=== PATIENT | male | born 1940 | race Caucasian/White ===

== ENCOUNTER 2020-01-29 19:12 | Inpatient (IN) | payer MEDICARE, OTHER ==
[~2020-01-29] VITALS: Ht 170.2 cm; Wt 63.6 kg
[~2020-01-29 19:12] MED LIST: DONE-46 PO; LISI-600 PO; OXCA300T16 PO; QUET50TA22 PO; TEN1T PO
--- NOTE | 2020-01-29 19:15 | NUR ---
PT'S ALISON PANDYA - [phone]
[2020-01-29] MEDS ORDERED: fentaNYL/PF 50MCG/1 ML 2ML syringe IV ONE (19:40)
[2020-01-29 20:02] LABS: BASOPHILS # (AUTO) 0.1 X10'3 (0-0.2); BASOPHILS % (AUTO) 1.2 % (0-1); EOSINOPHILS # (AUTO) 0.1 X10'3 (0-0.9); HEMATOCRIT 33.8 % (42.0-52.0); HEMOGLOBIN 11.4 g/dl (14.0-17.9); LYMPHOCYTES # (AUTO) 0.6 X10'3 (1.1-4.8); LYMPHOCYTES % (AUTO) 9.8 % (21-51); MEAN CORPUSCULAR HEMOGLOBIN 31.2 PG (27.0-31.0); MEAN CORPUSCULAR HGB CONC 33.6 g/dL (33.0-36.5); MEAN CORPUSCULAR VOLUME 92.8 FL (78-98); MEAN PLATELET VOLUME 6.8 FL (7.4-10.4); MONOCYTES # (AUTO) 0.4 X10'3 (0-0.9); MONOCYTES % (AUTO) 6.8 % (2-12); NEUTROPHILS # (AUTO) 5.1 X10'3 (1.8-7.7); NEUTROPHILS % (AUTO) 80.2 % (42-75); PLATELET COUNT 335 X10'3 (140-440); RED BLOOD COUNT 3.65 X10'6 (4.70-6.10); RED CELL DISTRIBUTION WIDTH 15.3 % (11.5-14.5); WHITE BLOOD COUNT 6.4 X10'3 (4.5-11.0)
[2020-01-29 20:15] LABS: ALANINE AMINOTRANSFERASE 34 U/L (12-78); ALBUMIN 3.6 G/DL (3.4-5.0); ALKALINE PHOSPHATASE 100 IU/L (46-116); ANION GAP 12 (8-16); ASPARTATE AMINO TRANSFERASE 22 U/L (10-37); BILIRUBIN,TOTAL 0.4 MG/DL (0.1-1.0); BLOOD UREA NITROGEN 19 MG/DL (7-18); BUN/CREATININE RATIO 25.7 (5.4-32.0); CALCIUM 9.6 MG/DL (8.5-10.1); CHLORIDE 107 MMOL/L (99-107); CREATININE 0.74 MG/DL (0.60-1.10); GLUCOSE 106 MG/DL (70-104); POTASSIUM 3.7 MMOL/L (3.5-5.1); SODIUM 142 MMOL/L (135-145); TOTAL CARBON DIOXIDE 23.2 MMOL/L (24-32); TOTAL PROTEIN 7.1 G/DL (6.4-8.2); eGFR > 90 ML/MIN
[2020-01-29] MEDS ORDERED: morphine 4 MG/ML inj SYRINge IV ONE ×2 (20:55→22:35)
[2020-01-29] MEDS ORDERED: ASPI-1264 PO (21:38)
[2020-01-29] MEDS ORDERED: potassium Cl 40MEQ/1/2NS 520ml 520 ML IV PRN ×2 (21:40)
[2020-01-29] MEDS ORDERED: morphine 2 MG/ML inj. syringe IV PRN (21:40)
[2020-01-29] MEDS ORDERED: magnesium 2GM in 50ml NS 50 ML IV PRN (21:40)
[2020-01-29] MEDS ORDERED: acetaminophen 325mg tablet PO PRN (21:40)
[2020-01-29] MEDS ORDERED: potassium Cl 20 mEq SR tablet PO PRN (21:40)
[2020-01-29] MEDS ORDERED: magnesium 4gm in 100ml NS 100 ML IV PRN (21:40)
[2020-01-29] MEDS ORDERED: magnesium Cl slow-release 64mg tablet PO PRN (21:40)
--- NOTE | 2020-01-29 22:43 | NUR ---
RECEIVED REPORT FROM MACARIO PIERRE IN ER, PATIENT ON HIS WAY TO THE UNIT.
[2020-01-29] MEDS: normal saline 1000ml 1,000 ML IV SCH (23:32)
[2020-01-30] VITALS: BP 133/77
[2020-01-30] MEDS: morphine 2 MG/ML inj. syringe IV PRN ×3 (01:36→20:33)
--- NOTE | 2020-01-30 06:23 | NUR ---
Problems reprioritized. Patient report given, questions answered & plan of care reviewed with ELIAZAR PIERRE. Patient is in constant pain and pain medication has been administered per MD order.
--- NOTE | 2020-01-30 06:25 | NUR ---
Patient in room [facility] 356A. I have received report from IGNACIO DERAS and had the opportunity to ask questions and assume patient care.
[2020-01-30 07:00] VITALS: BP 132/81
[2020-01-30 07:29] LABS: BASOPHILS % (AUTO) 0.4 % (0-1); EOSINOPHILS # (AUTO) 0.1 X10'3 (0-0.9); EOSINOPHILS % (AUTO) 1.3 % (0-6); HEMATOCRIT 31.5 % (42.0-52.0); HEMOGLOBIN 10.7 g/dl (14.0-17.9); LYMPHOCYTES # (AUTO) 0.6 X10'3 (1.1-4.8); LYMPHOCYTES % (AUTO) 8.2 % (21-51); MEAN CORPUSCULAR HEMOGLOBIN 32.2 PG (27.0-31.0); MEAN CORPUSCULAR HGB CONC 33.9 g/dL (33.0-36.5); MEAN CORPUSCULAR VOLUME 95.1 FL (78-98); MEAN PLATELET VOLUME 7.6 FL (7.4-10.4); MONOCYTES # (AUTO) 0.5 X10'3 (0-0.9); MONOCYTES % (AUTO) 7.3 % (2-12); NEUTROPHILS # (AUTO) 5.6 X10'3 (1.8-7.7); NEUTROPHILS % (AUTO) 82.8 % (42-75); PLATELET COUNT 287 X10'3 (140-440); RED BLOOD COUNT 3.31 X10'6 (4.70-6.10); RED CELL DISTRIBUTION WIDTH 15.1 % (11.5-14.5); WHITE BLOOD COUNT 6.8 X10'3 (4.5-11.0)
[2020-01-30 07:50] LABS: ALBUMIN 3.3 G/DL (3.4-5.0); ANION GAP 11 (8-16); BLOOD UREA NITROGEN 18 MG/DL (7-18); CALCIUM 8.8 MG/DL (8.5-10.1); CHLORIDE 108 MMOL/L (99-107); CREATININE 0.62 MG/DL (0.60-1.10); GLUCOSE 101 MG/DL (70-104); POTASSIUM 3.7 MMOL/L (3.5-5.1); SODIUM 144 MMOL/L (135-145); TOTAL CARBON DIOXIDE 25.1 MMOL/L (24-32); eGFR > 90 ML/MIN
[2020-01-30] MEDS: K and/or MAG REPLACEMENT MC SCH ×2 (08:00→19:59)
[2020-01-30] MEDS: docusate sod 100mg capsule PO SCH ×2 (09:05→20:36)
[2020-01-30] MEDS ORDERED: ondansetron/PF 4mg/2ml inj IV PRN (10:45)
[2020-01-30 11:00] VITALS: BP 130/70
[2020-01-30] MEDS: oxcarbazepine 150mg tablet PO SCH ×2 (16:16→20:36)
[2020-01-30] MEDS ORDERED: ringers solution, lacted 1,000 ML IV ONE (18:10)
--- NOTE | 2020-01-30 18:38 | NUR ---
Patient in room [facility] 356. I have received report from Liliane PIERRE and had the opportunity to ask questions and assume patient care.
--- NOTE | 2020-01-30 18:53 | NUR ---
Problems reprioritized. Patient report given, questions answered & plan of care reviewed with IGNACIO BENEDICT.
[2020-01-30 20:00] VITALS: BP 119/71
[2020-01-30] MEDS: quetiapine 100mg tablet PO SCH (20:36)
[2020-01-30] MEDS: donepezil 5mg tablet PO SCH (20:36)
[2020-01-30] MEDS: normal saline 1000ml 1,000 ML IV SCH (20:43)
[2020-01-31] VITALS (20 sets, daily range): BP systolic 92–129; BP diastolic 47–70
[2020-01-31] MEDS: morphine 2 MG/ML inj. syringe IV PRN ×4 (00:29→23:32)
[2020-01-31] MEDS ORDERED: famotidine 20mg tablet PO ONE (06:00)
--- NOTE | 2020-01-31 06:21 | NUR ---
Problems reprioritized. Patient report given, questions answered & plan of care reviewed with Lois PIERRE.
[2020-01-31 06:42] LABS: BASOPHILS % (AUTO) 0.7 % (0-1); EOSINOPHILS # (AUTO) 0.1 X10'3 (0-0.9); EOSINOPHILS % (AUTO) 1.8 % (0-6); HEMATOCRIT 28.2 % (42.0-52.0); HEMOGLOBIN 9.5 g/dl (14.0-17.9); LYMPHOCYTES # (AUTO) 0.6 X10'3 (1.1-4.8); LYMPHOCYTES % (AUTO) 9.8 % (21-51); MEAN CORPUSCULAR HEMOGLOBIN 32.1 PG (27.0-31.0); MEAN CORPUSCULAR HGB CONC 33.8 g/dL (33.0-36.5); MEAN CORPUSCULAR VOLUME 94.8 FL (78-98); MEAN PLATELET VOLUME 7.1 FL (7.4-10.4); MONOCYTES # (AUTO) 0.6 X10'3 (0-0.9); MONOCYTES % (AUTO) 8.8 % (2-12); NEUTROPHILS # (AUTO) 5.1 X10'3 (1.8-7.7); NEUTROPHILS % (AUTO) 78.9 % (42-75); PLATELET COUNT 252 X10'3 (140-440); RED BLOOD COUNT 2.97 X10'6 (4.70-6.10); RED CELL DISTRIBUTION WIDTH 14.7 % (11.5-14.5); WHITE BLOOD COUNT 6.5 X10'3 (4.5-11.0)
[2020-01-31 06:43] LABS: ANION GAP 9 (8-16); BLOOD UREA NITROGEN 15 MG/DL (7-18); BUN/CREATININE RATIO 24.2 (5.4-32.0); CALCIUM 9.1 MG/DL (8.5-10.1); CHLORIDE 109 MMOL/L (99-107); CREATININE 0.62 MG/DL (0.60-1.10); GLUCOSE 110 MG/DL (70-104); MAGNESIUM 2.1 MG/DL (1.5-2.4); POTASSIUM 3.6 MMOL/L (3.5-5.1); SODIUM 143 MMOL/L (135-145); TOTAL CARBON DIOXIDE 25.5 MMOL/L (24-32); eGFR > 90 ML/MIN
--- NOTE | 2020-01-31 06:50 | NUR ---
Patient in room [facility] 356. I have received report from JAK PIERRE and had the opportunity to ask questions and assume patient care.
--- NOTE | 2020-01-31 07:30 | NUR ---
PATIENT IS A & O X4. BLOOD BANK HAS 2 UNITS READY. PT HAD BS CHECK BS+=100 V/S STABLE
[2020-01-31] MEDS ORDERED: albumin (Human) 5% 250ml BOTTLE IV ONE (07:51)
[2020-01-31] MEDS ORDERED: morphine 4 MG/ML inj SYRINge IV PRN (08:00)
[2020-01-31] MEDS ORDERED: morphine 2 MG/ML inj. syringe IV PRN (08:00)
[2020-01-31] MEDS ORDERED: ringers solution, lacted 1,000 ML IV SCH (08:00)
[2020-01-31] MEDS ORDERED: acetaminophen 1,000mg/100ml IV 100 ML IV PRN (08:00)
[2020-01-31] MEDS: K and/or MAG REPLACEMENT MC SCH ×2 (08:00→20:00)
[2020-01-31] MEDS ORDERED: meperidine/PF 25mg/ml syringe IV PRN ×3 (08:00)
[2020-01-31] MEDS ORDERED: hydrALAZINE 20mg/ml inj. IV PRN (08:00)
[2020-01-31] MEDS ORDERED: proCHLORperazine 10 MG/2 ml inj IV PRN (08:00)
[2020-01-31] MEDS ORDERED: labetalol 20mg/4ml (5mg/ml) syringe IV PRN (08:00)
[2020-01-31] MEDS ORDERED: ondansetron/PF 4mg/2ml inj IV PRN (08:00)
--- NOTE | 2020-01-31 08:02 | NUR ---
patient went to surgery at 0750. will admin meds when he returns
[2020-01-31] MEDS ORDERED: cloNIDine hcl/PF 100mcg/ml inj ONE (08:03)
[2020-01-31] MEDS ORDERED: fentaNYL/PF 50MCG/1 ML 2ML syringe ONE (08:04)
[2020-01-31] MEDS ORDERED: midazolam 2 mg/2 ml injection ONE (08:04)
[2020-01-31] MEDS ORDERED: LIDOcaine 1%/PF 5ML 10 MG/ML VIAL ONE (08:33)
[2020-01-31] MEDS ORDERED: ROPIVAcaine 0.5% (5mg/ml) 30ml vial ONE (08:33)
[2020-01-31] MEDS ORDERED: dexamethasone sod phosphate 4mg/ml inj. ONE (08:33)
[2020-01-31] MEDS ORDERED: propofol inj 20 ML IV ONE (08:33)
[2020-01-31] MEDS ORDERED: ceFAZolin 1000mg inj ONE ×2 (08:33)
[2020-01-31] MEDS ORDERED: ePHEDrine 50MG/ML INJ. ONE (08:55)
--- NOTE | 2020-01-31 10:25 | NUR ---
Received from OR via BED, accompanied by Anesthesiologist TR and report given by Anesthesiolgist. PT AWAKE AND ALERT, OXYGENATING WELL ON 10 LPM O2 VIA MASK, NO RESP DISTRESS NOTED. PT DENIES NAUSEA OR PAIN AT THIS TIME, HAD A SAB. NO MOVEMENT OR SENSATION FROM HIPS DOWN. PEDAL PULSES PALP BILAT. LONG ISLAND DSG TO R LATERAL THIGH CDI. FC PATENT, SCDS ON. VSS.
--- NOTE | 2020-01-31 11:40 | NUR ---
Report called to receiving nurse. Transferred via BED Belongings IN PT ROOM. PT DENIES PAIN, REGAINING MOVEMENT AND SENSATION IN BLE. VSS. TOLERATING PO FLUIDS WELL. TRANSFERRED BACK TO SURGICAL FLOOR IN STABLE CONDITION. Special Issues communicated to receiving nurse.
[2020-01-31] MEDS: oxcarbazepine 150mg tablet PO SCH ×3 (12:17→20:34)
[2020-01-31] MEDS: donepezil 5mg tablet PO SCH ×2 (12:18→20:34)
[2020-01-31] MEDS: docusate sod 100mg capsule PO SCH ×2 (12:18→20:34)
[2020-01-31] MEDS: HYDROcodone/acetaminophen 10/325mg tab PO PRN ×2 (12:19→20:35)
[2020-01-31] MEDS: lisinopril 20mg tablet PO SCH (12:19)
[2020-01-31] MEDS: ceFAZolin/D5W- 1GM premix 50 ML IV SCH ×2 (15:47→23:35)
[2020-01-31] MEDS: normal saline 1000ml 1,000 ML IV SCH (15:50)
--- NOTE | 2020-01-31 17:54 | NUR ---
Problems reprioritized. Patient report given, questions answered & plan of care reviewed with MICHEAL PIERRE.
[2020-01-31] MEDS ORDERED: LIDOcaine 2% 10ml TOPICAL JELLY (Urojet) TP ONE (18:15)
--- NOTE | 2020-01-31 18:53 | NUR ---
I have received report from IGNACIO Abreu and had the opportunity to ask questions and assume patient care. Checked patients dressings and they were saturated with blood. Lois and I looked at the incisions and they are intact. Patient was positioned upright t eat dinner and it seems the pressure from being sat up to much caused some bleeding. I changed dressing and bedding. I will continue to monitor the incision throughout the night.
[2020-01-31] MEDS: quetiapine 100mg tablet PO SCH (20:33)
--- NOTE | 2020-01-31 21:00 | NUR ---
Patient had a temp of 101.5 during the first round of vitals. Tylenol 650mg was given at 1917. Temp was re checked at 1999 and it was 102.5. BP was 116/70 and Heart rate was 127. I also checked the patients [place] dressing that is covering his incision. the posterior dressing had a moderate amount of blood on it. At 2039 I re checked the patents temp and it was 100.3. I called Dr hinojosa to let him know about the temp, heart rate, and bleeding. I was told to reinforce the surgical site with 6" Mike wrap. No other orders given. I will continue to monitor patient.
[2020-02-01] VITALS (8 sets, daily range): BP systolic 88–108; BP diastolic 42–57
[2020-02-01] MEDS: normal saline 1000ml 1,000 ML IV SCH ×2 (01:58→16:16)
[2020-02-01] MEDS: HYDROcodone/acetaminophen 10/325mg tab PO PRN (02:29)
[2020-02-01] MEDS: morphine 2 MG/ML inj. syringe IV PRN (05:26)
--- NOTE | 2020-02-01 06:29 | NUR ---
Problems reprioritized. Patient report given, questions answered & plan of care reviewed with IGNACIO De La Torre.
--- NOTE | 2020-02-01 06:30 | NUR ---
Patient in room [facility] 340. I have received report from Vishnu PIERRE and had the opportunity to ask questions and assume patient care.
--- NOTE | 2020-02-01 06:30 | NUR ---
Patient in room [facility] 340. I have received report from Vishnu PIERRE and had the opportunity to ask questions and assume patient care.
[2020-02-01 07:15] LABS: BASOPHILS # (AUTO) 0.1 X10'3 (0-0.2); BASOPHILS % (AUTO) 0.7 % (0-1); EOSINOPHILS % (AUTO) 0.5 % (0-6); LYMPHOCYTES # (AUTO) 0.5 X10'3 (1.1-4.8); LYMPHOCYTES % (AUTO) 6.2 % (21-51); MEAN CORPUSCULAR HEMOGLOBIN 31.4 PG (27.0-31.0); MEAN CORPUSCULAR HGB CONC 33.5 g/dL (33.0-36.5); MEAN CORPUSCULAR VOLUME 93.9 FL (78-98); MEAN PLATELET VOLUME 7.7 FL (7.4-10.4); MONOCYTES # (AUTO) 0.7 X10'3 (0-0.9); MONOCYTES % (AUTO) 8.7 % (2-12); NEUTROPHILS # (AUTO) 6.7 X10'3 (1.8-7.7); NEUTROPHILS % (AUTO) 83.9 % (42-75); PLATELET COUNT 183 X10'3 (140-440); RED BLOOD COUNT 2.15 X10'6 (4.70-6.10); RED CELL DISTRIBUTION WIDTH 14.7 % (11.5-14.5)
[2020-02-01 07:26] LABS: ALBUMIN 2.3 G/DL (3.4-5.0); ANION GAP 6 (8-16); BLOOD UREA NITROGEN 13 MG/DL (7-18); BUN/CREATININE RATIO 16.5 (5.4-32.0); CALCIUM 7.9 MG/DL (8.5-10.1); CHLORIDE 108 MMOL/L (99-107); CREATININE 0.79 MG/DL (0.60-1.10); GLUCOSE 123 MG/DL (70-104); MAGNESIUM 1.8 MG/DL (1.5-2.4); POTASSIUM 3.3 MMOL/L (3.5-5.1); SODIUM 141 MMOL/L (135-145); TOTAL CARBON DIOXIDE 26.6 MMOL/L (24-32); eGFR > 90 ML/MIN
[2020-02-01 07:35] LABS: HEMATOCRIT 20.2 % (42.0-52.0); HEMOGLOBIN 6.8 g/dl (14.0-17.9)
--- NOTE | 2020-02-01 07:40 | NUR ---
PAGER ID: [phone] MESSAGE: Wil Surg [id number] RE: Colin Mckay 356a Patient has critical Hb of 6.8 and Hct of 20.2.
[2020-02-01] MEDS: K and/or MAG REPLACEMENT MC SCH ×2 (08:00→20:00)
[2020-02-01] MEDS: lisinopril 20mg tablet PO SCH (08:00)
[2020-02-01] MEDS: donepezil 5mg tablet PO SCH ×2 (08:35→20:20)
[2020-02-01] MEDS: docusate sod 100mg capsule PO SCH ×2 (08:35→20:19)
[2020-02-01] MEDS: oxcarbazepine 150mg tablet PO SCH ×3 (08:38→20:20)
[2020-02-01] MEDS: ceFAZolin/D5W- 1GM premix 50 ML IV SCH ×2 (08:38→16:30)
[2020-02-01] MEDS: potassium Cl 20 mEq SR tablet PO PRN ×2 (13:59→20:23)
[2020-02-01 14:19] LABS: HEMATOCRIT 26.2 % (42.0-52.0); HEMOGLOBIN 8.8 g/dl (14.0-17.9); MEAN CORPUSCULAR HEMOGLOBIN 31.6 PG (27.0-31.0); MEAN CORPUSCULAR HGB CONC 33.7 g/dL (33.0-36.5); MEAN PLATELET VOLUME 8.1 FL (7.4-10.4); PLATELET COUNT 197 X10'3 (140-440); RED BLOOD COUNT 2.78 X10'6 (4.70-6.10); RED CELL DISTRIBUTION WIDTH 14.8 % (11.5-14.5); WHITE BLOOD COUNT 12.1 X10'3 (4.5-11.0)
--- NOTE | 2020-02-01 18:22 | NUR ---
Problems reprioritized. Patient report given, questions answered & plan of care reviewed with Vishnu PIERRE.
--- NOTE | 2020-02-01 18:35 | NUR ---
I have received report from IGNACIO De La Torre and had the opportunity to ask questions and assume patient care.
[2020-02-01] MEDS: quetiapine 100mg tablet PO SCH (20:19)
[2020-02-02] VITALS (9 sets, daily range): BP systolic 102–124; BP diastolic 47–54
[2020-02-02] MEDS ORDERED: magnesium Cl slow-release 64mg tablet PO PRN (00:20)
[2020-02-02] MEDS ORDERED: potassium Cl 20 mEq SR tablet PO PRN (00:20)
[2020-02-02] MEDS ORDERED: potassium Cl 40MEQ/1/2NS 520ml 520 ML IV PRN (00:20)
[2020-02-02] MEDS ORDERED: magnesium 4gm in 100ml NS 100 ML IV PRN (00:20)
[2020-02-02] MEDS: normal saline 1000ml 1,000 ML IV SCH ×2 (00:25→20:41)
[2020-02-02] MEDS: ceFAZolin/D5W- 1GM premix 50 ML IV SCH ×3 (00:27→16:19)
[2020-02-02] MEDS: HYDROcodone/acetaminophen 10/325mg tab PO PRN ×2 (05:02→20:43)
--- NOTE | 2020-02-02 06:27 | NUR ---
Problems reprioritized. Patient report given, questions answered & plan of care reviewed with IGNACIO Ramirez.
[2020-02-02 06:28] LABS: BASOPHILS % (AUTO) 0.4 % (0-1); EOSINOPHILS # (AUTO) 0.1 X10'3 (0-0.9); EOSINOPHILS % (AUTO) 1.8 % (0-6); LYMPHOCYTES # (AUTO) 0.5 X10'3 (1.1-4.8); LYMPHOCYTES % (AUTO) 5.4 % (21-51); MEAN CORPUSCULAR HEMOGLOBIN 31.2 PG (27.0-31.0); MEAN CORPUSCULAR HGB CONC 33.6 g/dL (33.0-36.5); MEAN CORPUSCULAR VOLUME 92.9 FL (78-98); MEAN PLATELET VOLUME 7.8 FL (7.4-10.4); MONOCYTES # (AUTO) 0.8 X10'3 (0-0.9); MONOCYTES % (AUTO) 9.1 % (2-12); NEUTROPHILS # (AUTO) 7.1 X10'3 (1.8-7.7); NEUTROPHILS % (AUTO) 83.3 % (42-75); PLATELET COUNT 178 X10'3 (140-440); RED BLOOD COUNT 2.25 X10'6 (4.70-6.10); RED CELL DISTRIBUTION WIDTH 14.6 % (11.5-14.5); WHITE BLOOD COUNT 8.5 X10'3 (4.5-11.0)
--- NOTE | 2020-02-02 06:30 | NUR ---
Patient in room [facility] 356. I have received report from Vishnu PIERRE and had the opportunity to ask questions and assume patient care.
[2020-02-02 06:39] LABS: ANION GAP 8 (8-16); BLOOD UREA NITROGEN 10 MG/DL (7-18); BUN/CREATININE RATIO 16.7 (5.4-32.0); CALCIUM 8.1 MG/DL (8.5-10.1); CHLORIDE 105 MMOL/L (99-107); GLUCOSE 97 MG/DL (70-104); MAGNESIUM 1.8 MG/DL (1.5-2.4); POTASSIUM 3.8 MMOL/L (3.5-5.1); SODIUM 139 MMOL/L (135-145); TOTAL CARBON DIOXIDE 25.9 MMOL/L (24-32); eGFR > 90 ML/MIN
[2020-02-02 06:40] LABS: HEMATOCRIT 20.9 % (42.0-52.0)
--- NOTE | 2020-02-02 06:43 | NUR ---
Paged Dr. Garcia re: critical lab h/h 7.0/20.9 today asking if he wants the standby 1 unit PRBC transfused today. Awaiting for call back
--- NOTE | 2020-02-02 06:56 | NUR ---
Received telephone order from Dr. Garcia to transfuse the 1 unit PRBC that was on standby in the blood bank, blood bank notified about this. Addendum: 02/02/20 at 0750 by Ashley Guzman RN Order to transfuse 1 unit of PRBC was written under miscellaneous nursing order as the blood bank instructed me not to order another unit to the blood bank because we will use the standby unit. Upon ordering the PRBC, the computer asking me for number of unit or I won't be able to proceed. I discussed this with the blood bank staff who instructed me to come and get the unit once Im ready.
[2020-02-02] MEDS: donepezil 5mg tablet PO SCH ×2 (07:41→20:32)
[2020-02-02] MEDS: docusate sod 100mg capsule PO SCH ×2 (07:41→20:32)
[2020-02-02] MEDS: oxcarbazepine 150mg tablet PO SCH ×3 (07:41→20:32)
--- NOTE | 2020-02-02 07:46 | NUR ---
Discussed with patient the need for another blood transfusion today as his hgb dropped to 7.0 today. Explained to patient that we are going to monitor his vital signs closely and monitor for any signs of reaction. Patient agreed with the plan of care.
[2020-02-02] MEDS: K and/or MAG REPLACEMENT MC SCH ×4 (08:00→20:00)
--- NOTE | 2020-02-02 09:15 | NUR ---
1 unit of PRBC started, first 15 minutes of transfusion completed, vital signs were within normal and no transfusion reaction noted. Will continue to monitor.
--- NOTE | 2020-02-02 12:02 | NUR ---
Patient just finished 1 unit of PRBC transfusion, no reaction noted.
[2020-02-02 14:32] LABS: HEMATOCRIT 26.8 % (42.0-52.0); MEAN CORPUSCULAR HEMOGLOBIN 31.2 PG (27.0-31.0); MEAN CORPUSCULAR HGB CONC 33.7 g/dL (33.0-36.5); MEAN CORPUSCULAR VOLUME 92.6 FL (78-98); MEAN PLATELET VOLUME 7.9 FL (7.4-10.4); PLATELET COUNT 187 X10'3 (140-440); RED CELL DISTRIBUTION WIDTH 14.5 % (11.5-14.5); WHITE BLOOD COUNT 9.1 X10'3 (4.5-11.0)
--- NOTE | 2020-02-02 18:15 | NUR ---
Problems reprioritized. Patient report given, questions answered & plan of care reviewed with Cydney PIERRE.
[2020-02-02] MEDS: quetiapine 100mg tablet PO SCH (20:32)
[2020-02-03] VITALS: BP 112/50
[2020-02-03] MEDS: HYDROcodone/acetaminophen 10/325mg tab PO PRN ×3 (05:57→20:25)
[2020-02-03 06:00] VITALS: BP 102/55
[2020-02-03 06:13] LABS: ANION GAP 7 (8-16); BLOOD UREA NITROGEN 9 MG/DL (7-18); BUN/CREATININE RATIO 12.7 (5.4-32.0); CALCIUM 8.3 MG/DL (8.5-10.1); CHLORIDE 106 MMOL/L (99-107); CREATININE 0.71 MG/DL (0.60-1.10); GLUCOSE 97 MG/DL (70-104); POTASSIUM 3.6 MMOL/L (3.5-5.1); SODIUM 140 MMOL/L (135-145); TOTAL CARBON DIOXIDE 27.5 MMOL/L (24-32); eGFR > 90 ML/MIN
[2020-02-03 06:20] LABS: BASOPHILS % (AUTO) 0.4 % (0-1); EOSINOPHILS # (AUTO) 0.4 X10'3 (0-0.9); HEMATOCRIT 26.4 % (42.0-52.0); HEMOGLOBIN 8.9 g/dl (14.0-17.9); LYMPHOCYTES # (AUTO) 0.5 X10'3 (1.1-4.8); LYMPHOCYTES % (AUTO) 6.9 % (21-51); MEAN CORPUSCULAR HEMOGLOBIN 31.2 PG (27.0-31.0); MEAN CORPUSCULAR HGB CONC 33.6 g/dL (33.0-36.5); MEAN CORPUSCULAR VOLUME 92.9 FL (78-98); MEAN PLATELET VOLUME 8.3 FL (7.4-10.4); MONOCYTES # (AUTO) 0.7 X10'3 (0-0.9); MONOCYTES % (AUTO) 9.1 % (2-12); NEUTROPHILS % (AUTO) 78.6 % (42-75); PLATELET COUNT 189 X10'3 (140-440); RED BLOOD COUNT 2.84 X10'6 (4.70-6.10); RED CELL DISTRIBUTION WIDTH 14.5 % (11.5-14.5); WHITE BLOOD COUNT 7.6 X10'3 (4.5-11.0)
[2020-02-03] MEDS: K and/or MAG REPLACEMENT MC SCH ×4 (07:23→20:00)
[2020-02-03] MEDS: oxcarbazepine 150mg tablet PO SCH ×3 (08:39→19:32)
[2020-02-03] MEDS: donepezil 5mg tablet PO SCH ×2 (08:39→19:31)
[2020-02-03] MEDS: docusate sod 100mg capsule PO SCH ×3 (08:39→19:34)
--- NOTE | 2020-02-03 13:43 | NUR ---
Initial: Pt admit DX R femur fx now s/p repair, ADHD, dementia, and hypotension. PO 75-100% avg recent heart healthy meals w/ 75% avg overall meeting needs. LBM 01/28 receiving routine colace. Will continue to monitor for additional protein and bowel care needs post-op. Rec: 1. continue heart healthy diet 2. routine bowel care; consider opioid antagonist if MD agreeable since receiving norco and morphine 3. weekly wts Addendum: 02/03/20 at [address] Amended: Links added.
[2020-02-03 14:00] VITALS: BP 102/51
[2020-02-03] MEDS: normal saline 1000ml 1,000 ML IV SCH (16:37)
--- NOTE | 2020-02-03 17:00 | NUR ---
PAGER ID: [phone] MESSAGE: [id number] Colin Mckay Can I add Colace and MOM? NO BM since 01/28 Loreta 58
[2020-02-03] MEDS ORDERED: magnesium hydroxide 30ml (MOM) UD suspension PO ONE (17:05)
--- NOTE | 2020-02-03 18:26 | NUR ---
Problems reprioritized. Patient report given, questions answered & plan of care reviewed with Tamar PIERRE.
--- NOTE | 2020-02-03 18:30 | NUR ---
Patient in room [facility] 356. I have received report from IGNACIO RICARDO and had the opportunity to ask questions and assume patient care.
[2020-02-03] MEDS: quetiapine 100mg tablet PO SCH (19:32)
[2020-02-03 20:00] VITALS: BP 108/56
[2020-02-04] VITALS: BP 100/59
[2020-02-04] MEDS: HYDROcodone/acetaminophen 10/325mg tab PO PRN (05:27)
[2020-02-04] MEDS: normal saline 1000ml 1,000 ML IV SCH ×3 (05:47→19:34)
--- NOTE | 2020-02-04 06:00 | NUR ---
Patient in room [facility] 356. I have received report from Tamar PIERRE and had the opportunity to ask questions and assume patient care.
[2020-02-04 06:10] LABS: MAGNESIUM 2.1 MG/DL (1.5-2.4); POTASSIUM 3.9 MMOL/L (3.5-5.1)
--- NOTE | 2020-02-04 06:13 | NUR ---
Problems reprioritized. Patient report given, questions answered & plan of care reviewed with IGNACIO MARINA.
[2020-02-04 07:00] VITALS: BP 102/54
[2020-02-04] MEDS: docusate sod 100mg capsule PO SCH ×4 (08:00→19:37)
[2020-02-04] MEDS: K and/or MAG REPLACEMENT MC SCH ×4 (08:00→19:36)
[2020-02-04] MEDS: oxcarbazepine 150mg tablet PO SCH ×3 (08:21→19:33)
[2020-02-04] MEDS: donepezil 5mg tablet PO SCH ×2 (08:21→19:33)
[2020-02-04] MEDS ORDERED: magnesium hydroxide 30ml (MOM) UD suspension PO PRN (08:25)
[2020-02-04 10:00] VITALS: BP 106/56
--- NOTE | 2020-02-04 18:04 | NUR ---
Problems reprioritized. Patient report given, questions answered & plan of care reviewed with Rafael PIERRE.
[2020-02-04 19:00] VITALS: BP 111/56
[2020-02-04] MEDS: quetiapine 100mg tablet PO SCH (19:33)
[2020-02-05] VITALS: BP 130/61
[2020-02-05] MEDS: HYDROcodone/acetaminophen 10/325mg tab PO PRN ×3 (04:41→19:22)
[2020-02-05 06:07] LABS: BASOPHILS % (AUTO) 0.8 % (0-1); EOSINOPHILS # (AUTO) 0.4 X10'3 (0-0.9); EOSINOPHILS % (AUTO) 7.5 % (0-6); HEMATOCRIT 28.4 % (42.0-52.0); HEMOGLOBIN 9.5 g/dl (14.0-17.9); LYMPHOCYTES # (AUTO) 0.4 X10'3 (1.1-4.8); LYMPHOCYTES % (AUTO) 8.6 % (21-51); MEAN CORPUSCULAR HGB CONC 33.4 g/dL (33.0-36.5); MEAN CORPUSCULAR VOLUME 92.8 FL (78-98); MEAN PLATELET VOLUME 7.4 FL (7.4-10.4); MONOCYTES # (AUTO) 0.6 X10'3 (0-0.9); MONOCYTES % (AUTO) 12.3 % (2-12); NEUTROPHILS # (AUTO) 3.5 X10'3 (1.8-7.7); NEUTROPHILS % (AUTO) 70.8 % (42-75); PLATELET COUNT 267 X10'3 (140-440); RED BLOOD COUNT 3.06 X10'6 (4.70-6.10); RED CELL DISTRIBUTION WIDTH 14.2 % (11.5-14.5)
[2020-02-05 06:28] LABS: ALANINE AMINOTRANSFERASE 31 U/L (12-78); ALBUMIN 2.1 G/DL (3.4-5.0); ALBUMIN/GLOBULIN RATIO 0.5 (1.1-1.5); ANION GAP 7 (8-16); ASPARTATE AMINO TRANSFERASE 35 U/L (10-37); BILIRUBIN,TOTAL 0.5 MG/DL (0.1-1.0); BLOOD UREA NITROGEN 10 MG/DL (7-18); BUN/CREATININE RATIO 15.6 (5.4-32.0); CALCIUM 8.6 MG/DL (8.5-10.1); CHLORIDE 104 MMOL/L (99-107); CREATININE 0.64 MG/DL (0.60-1.10); GLUCOSE 97 MG/DL (70-104); MAGNESIUM 2.2 MG/DL (1.5-2.4); POTASSIUM 3.7 MMOL/L (3.5-5.1); SODIUM 139 MMOL/L (135-145); TOTAL CARBON DIOXIDE 27.7 MMOL/L (24-32); eGFR > 90 ML/MIN
--- NOTE | 2020-02-05 06:41 | NUR ---
reported to days noted pt anticipates discharge to rehab when one available. norco given for pain
[2020-02-05 06:52] LABS: ALKALINE PHOSPHATASE 89 IU/L (46-116)
[2020-02-05 07:09] VITALS: BP 129/72
[2020-02-05] MEDS: K and/or MAG REPLACEMENT MC SCH ×4 (08:00→19:22)
[2020-02-05] MEDS: docusate sod 100mg capsule PO SCH ×4 (08:00→19:22)
[2020-02-05] MEDS: donepezil 5mg tablet PO SCH ×2 (09:27→19:21)
[2020-02-05] MEDS: oxcarbazepine 150mg tablet PO SCH ×3 (09:27→20:39)
[2020-02-05 11:00] VITALS: BP 114/59
[2020-02-05 18:00] VITALS: BP 113/76
--- NOTE | 2020-02-05 18:35 | NUR ---
Patient in room [facility] 358. I have received report from Adalgisa PIERRE and had the opportunity to ask questions and assume patient care.
[2020-02-05] MEDS: quetiapine 100mg tablet PO SCH (20:39)
[2020-02-05] MEDS: normal saline 1000ml 1,000 ML IV SCH (23:09)
[2020-02-06] VITALS: BP 143/64
--- NOTE | 2020-02-06 06:37 | NUR ---
Problems reprioritized. Patient report given, questions answered & plan of care reviewed with Santa PIERRE.
[2020-02-06 06:51] LABS: BASOPHILS % (AUTO) 0.3 % (0-1); EOSINOPHILS # (AUTO) 0.5 X10'3 (0-0.9); EOSINOPHILS % (AUTO) 9.1 % (0-6); HEMATOCRIT 28.1 % (42.0-52.0); HEMOGLOBIN 9.5 g/dl (14.0-17.9); LYMPHOCYTES # (AUTO) 0.6 X10'3 (1.1-4.8); LYMPHOCYTES % (AUTO) 10.9 % (21-51); MEAN CORPUSCULAR HEMOGLOBIN 31.8 PG (27.0-31.0); MEAN CORPUSCULAR HGB CONC 33.9 g/dL (33.0-36.5); MEAN CORPUSCULAR VOLUME 93.7 FL (78-98); MEAN PLATELET VOLUME 7.6 FL (7.4-10.4); MONOCYTES # (AUTO) 0.5 X10'3 (0-0.9); MONOCYTES % (AUTO) 9.1 % (2-12); NEUTROPHILS # (AUTO) 3.7 X10'3 (1.8-7.7); NEUTROPHILS % (AUTO) 70.6 % (42-75); PLATELET COUNT 317 X10'3 (140-440); RED CELL DISTRIBUTION WIDTH 14.5 % (11.5-14.5); WHITE BLOOD COUNT 5.3 X10'3 (4.5-11.0)
--- NOTE | 2020-02-06 06:55 | NUR ---
Patient in room [facility] 358B. I have received report from IGNACIO PHELAN and had the opportunity to ask questions and assume patient care.
[2020-02-06 07:00] VITALS: BP 129/62
[2020-02-06 07:05] LABS: ALANINE AMINOTRANSFERASE 31 U/L (12-78); ALBUMIN 2.2 G/DL (3.4-5.0); ALBUMIN/GLOBULIN RATIO 0.5 (1.1-1.5); ALKALINE PHOSPHATASE 97 IU/L (46-116); ANION GAP 5 (8-16); ASPARTATE AMINO TRANSFERASE 30 U/L (10-37); BILIRUBIN,TOTAL 0.5 MG/DL (0.1-1.0); BLOOD UREA NITROGEN 12 MG/DL (7-18); BUN/CREATININE RATIO 23.1 (5.4-32.0); CALCIUM 8.6 MG/DL (8.5-10.1); CHLORIDE 103 MMOL/L (99-107); CREATININE 0.52 MG/DL (0.60-1.10); GLUCOSE 91 MG/DL (70-104); POTASSIUM 4.1 MMOL/L (3.5-5.1); SODIUM 138 MMOL/L (135-145); TOTAL CARBON DIOXIDE 29.6 MMOL/L (24-32); TOTAL PROTEIN 6.4 G/DL (6.4-8.2); eGFR > 90 ML/MIN
[2020-02-06] MEDS: K and/or MAG REPLACEMENT MC SCH ×4 (07:38→19:46)
[2020-02-06] MEDS: docusate sod 100mg capsule PO SCH ×4 (07:39→19:52)
[2020-02-06] MEDS: donepezil 5mg tablet PO SCH ×2 (09:19→19:49)
[2020-02-06] MEDS: oxcarbazepine 150mg tablet PO SCH ×3 (09:19→19:50)
[2020-02-06] MEDS: HYDROcodone/acetaminophen 10/325mg tab PO PRN ×2 (09:20→19:50)
[2020-02-06] MEDS: normal saline 1000ml 1,000 ML IV SCH ×2 (10:40→23:00)
--- NOTE | 2020-02-06 18:23 | NUR ---
Problems reprioritized. Patient report given, questions answered & plan of care reviewed with IGNACIO Garcia.
[2020-02-06] MEDS: quetiapine 100mg tablet PO SCH (19:50)
[2020-02-06 20:00] VITALS: BP 127/65
[2020-02-07] VITALS: BP 138/72
--- NOTE | 2020-02-07 06:34 | NUR ---
Problems reprioritized. Patient report given, questions answered & plan of care reviewed with IGNACIO Wheatley.
--- NOTE | 2020-02-07 06:47 | NUR ---
Patient in room [facility] 358. I have received report from IGNACIO Garcia and had the opportunity to ask questions and assume patient care.
[2020-02-07 07:00] VITALS: BP 113/60
[2020-02-07 07:03] LABS: BASOPHILS # (AUTO) 0.1 X10'3 (0-0.2); EOSINOPHILS # (AUTO) 0.4 X10'3 (0-0.9); EOSINOPHILS % (AUTO) 7.6 % (0-6); HEMOGLOBIN 8.9 g/dl (14.0-17.9); LYMPHOCYTES # (AUTO) 0.5 X10'3 (1.1-4.8); MEAN CORPUSCULAR HEMOGLOBIN 31.9 PG (27.0-31.0); MEAN CORPUSCULAR HGB CONC 34.3 g/dL (33.0-36.5); MEAN CORPUSCULAR VOLUME 92.9 FL (78-98); MONOCYTES # (AUTO) 0.5 X10'3 (0-0.9); MONOCYTES % (AUTO) 9.2 % (2-12); NEUTROPHILS % (AUTO) 73.2 % (42-75); PLATELET COUNT 352 X10'3 (140-440); RED CELL DISTRIBUTION WIDTH 14.4 % (11.5-14.5); WHITE BLOOD COUNT 5.4 X10'3 (4.5-11.0)
[2020-02-07 07:15] LABS: ALANINE AMINOTRANSFERASE 30 U/L (12-78); ALBUMIN 2.2 G/DL (3.4-5.0); ALBUMIN/GLOBULIN RATIO 0.6 (1.1-1.5); ALKALINE PHOSPHATASE 98 IU/L (46-116); ANION GAP 6 (8-16); ASPARTATE AMINO TRANSFERASE 27 U/L (10-37); BILIRUBIN,TOTAL 0.4 MG/DL (0.1-1.0); BLOOD UREA NITROGEN 11 MG/DL (7-18); BUN/CREATININE RATIO 19.3 (5.4-32.0); CALCIUM 8.7 MG/DL (8.5-10.1); CHLORIDE 105 MMOL/L (99-107); CREATININE 0.57 MG/DL (0.60-1.10); GLUCOSE 95 MG/DL (70-104); POTASSIUM 3.9 MMOL/L (3.5-5.1); SODIUM 140 MMOL/L (135-145); TOTAL CARBON DIOXIDE 29.1 MMOL/L (24-32); TOTAL PROTEIN 6.1 G/DL (6.4-8.2); eGFR > 90 ML/MIN
[2020-02-07] MEDS: K and/or MAG REPLACEMENT MC SCH ×4 (07:31→20:00)
[2020-02-07] MEDS: docusate sod 100mg capsule PO SCH ×2 (08:10→20:27)
[2020-02-07] MEDS: donepezil 5mg tablet PO SCH ×2 (08:10→20:27)
[2020-02-07] MEDS: oxcarbazepine 150mg tablet PO SCH ×3 (08:10→20:27)
[2020-02-07] MEDS: HYDROcodone/acetaminophen 10/325mg tab PO PRN ×3 (08:11→20:29)
[2020-02-07 11:00] VITALS: BP 113/65
[2020-02-07] MEDS: normal saline 1000ml 1,000 ML IV SCH (15:23)
[2020-02-07 18:00] VITALS: BP 125/63
--- NOTE | 2020-02-07 18:18 | NUR ---
Problems reprioritized. Patient report given, questions answered & plan of care reviewed with IGNACIO Juan.
--- NOTE | 2020-02-07 18:30 | NUR ---
Patient in room [facility] 358. I have received report from MALINA PIERRE and had the opportunity to ask questions and assume patient care.
[2020-02-07] MEDS: quetiapine 100mg tablet PO SCH (20:26)
[2020-02-08] VITALS: BP 112/57
[2020-02-08] MEDS: normal saline 1000ml 1,000 ML IV SCH ×2 (05:33→20:12)
--- NOTE | 2020-02-08 06:27 | NUR ---
Problems reprioritized. Patient report given, questions answered & plan of care reviewed with CHRISTINA PIERRE.
--- NOTE | 2020-02-08 06:35 | NUR ---
Patient in room [facility] 358. I have received report from STEPHEN PIERRE and had the opportunity to ask questions and assume patient care.
[2020-02-08 07:00] VITALS: BP 108/59
[2020-02-08] MEDS: oxcarbazepine 150mg tablet PO SCH ×3 (07:44→21:45)
[2020-02-08] MEDS: donepezil 5mg tablet PO SCH ×2 (07:44→20:10)
[2020-02-08] MEDS: docusate sod 100mg capsule PO SCH ×2 (07:44→20:10)
[2020-02-08] MEDS: HYDROcodone/acetaminophen 10/325mg tab PO PRN ×3 (07:46→20:15)
[2020-02-08] MEDS: K and/or MAG REPLACEMENT MC SCH ×4 (08:00→20:00)
[2020-02-08 11:00] VITALS: BP 108/67
--- NOTE | 2020-02-08 11:27 | NUR ---
CURRENTLY NO LABS ORDERED FOR THIS PATIENT. WILL CHECK WITH HOSPITALIST WHEN THEY ROUND
--- NOTE | 2020-02-08 15:29 | NUR ---
Reassessment: Pt PO 75-100% avg heart healthy diet meeting needs. LBM 02/04. No nutrition concerns at this time. Will continue to monitor. Rec: 1. continue heart healthy diet 2. routine bowel care 3. wt per rx Addendum: 02/08/20 at [address] Amended: Links added.
--- NOTE | 2020-02-08 17:17 | NUR ---
Problems reprioritized. Patient report given, questions answered & plan of care reviewed with JOHAN PIERRE.
[2020-02-08 18:40] VITALS: BP 114/65
[2020-02-08] MEDS: quetiapine 100mg tablet PO SCH (21:45)
[2020-02-09] VITALS: BP 134/62
--- NOTE | 2020-02-09 06:25 | NUR ---
Problems reprioritized. Patient report given, questions answered & plan of care reviewed with RAKESH. Addendum: 02/09/20 at 0625 by Varinder Lewis RN Amended: Links added.
[2020-02-09 07:35] VITALS: BP 123/62
[2020-02-09] MEDS: docusate sod 100mg capsule PO SCH ×2 (07:39→21:24)
[2020-02-09] MEDS: donepezil 5mg tablet PO SCH ×2 (07:39→21:24)
[2020-02-09] MEDS: oxcarbazepine 150mg tablet PO SCH ×3 (07:40→21:24)
[2020-02-09] MEDS: HYDROcodone/acetaminophen 10/325mg tab PO PRN ×3 (07:43→21:25)
[2020-02-09] MEDS: K and/or MAG REPLACEMENT MC SCH ×4 (07:46→20:00)
[2020-02-09] MEDS: normal saline 1000ml 1,000 ML IV SCH (11:14)
[2020-02-09 12:15] VITALS: BP 121/71
--- NOTE | 2020-02-09 18:10 | NUR ---
Problems reprioritized. Patient report given, questions answered & plan of care reviewed with IGNACIO PRADO.
[2020-02-09 19:00] VITALS: BP 132/58
[2020-02-09] MEDS: quetiapine 100mg tablet PO SCH (21:24)
[2020-02-10] VITALS: BP 106/64
[2020-02-10] MEDS: normal saline 1000ml 1,000 ML IV SCH ×3 (02:00→16:43)
[2020-02-10] MEDS: HYDROcodone/acetaminophen 10/325mg tab PO PRN ×3 (05:03→17:57)
--- NOTE | 2020-02-10 06:10 | NUR ---
Problems reprioritized. Patient report given, questions answered & plan of care reviewed with Barbie. Addendum: 02/10/20 at 0610 by Varinder Lewis RN Amended: Links added.
[2020-02-10 07:00] VITALS: BP 109/62
[2020-02-10] MEDS: K and/or MAG REPLACEMENT MC SCH ×4 (08:00→20:00)
[2020-02-10] MEDS: donepezil 5mg tablet PO SCH ×2 (08:06→20:49)
[2020-02-10] MEDS: docusate sod 100mg capsule PO SCH ×2 (08:06→20:49)
[2020-02-10] MEDS: oxcarbazepine 150mg tablet PO SCH ×3 (08:07→20:49)
[2020-02-10 12:21] VITALS: BP 116/66
--- NOTE | 2020-02-10 18:22 | NUR ---
Problems reprioritized. Patient report given, questions answered & plan of care reviewed with IGNACIO GILLETTE.
--- NOTE | 2020-02-10 18:37 | NUR ---
Patient in room [facility] 349. I have received report from IGNACIO Valentin and had the opportunity to ask questions and assume patient care
[2020-02-10 20:00] VITALS: BP 126/70
[2020-02-10] MEDS: quetiapine 100mg tablet PO SCH (20:49)
[2020-02-11 00:23] VITALS: BP 106/62
[2020-02-11] MEDS: HYDROcodone/acetaminophen 10/325mg tab PO PRN ×3 (05:15→20:09)
--- NOTE | 2020-02-11 06:27 | NUR ---
Problems reprioritized. Patient report given, questions answered & plan of care reviewed with IGNACIO Valentin.
[2020-02-11 07:35] VITALS: BP 119/62
[2020-02-11] MEDS: K and/or MAG REPLACEMENT MC SCH ×4 (08:00→20:00)
[2020-02-11] MEDS: oxcarbazepine 150mg tablet PO SCH ×3 (08:05→20:09)
[2020-02-11] MEDS: donepezil 5mg tablet PO SCH ×2 (08:05→20:09)
[2020-02-11] MEDS: docusate sod 100mg capsule PO SCH ×2 (08:05→20:09)
[2020-02-11 11:37] VITALS: BP 122/65
--- NOTE | 2020-02-11 18:00 | NUR ---
Problems reprioritized. Patient report given, questions answered & plan of care reviewed with LETA Scott RN.
--- NOTE | 2020-02-11 18:12 | NUR ---
Patient in room [facility] 349. I have received report from IGNACIO Valentin and had the opportunity to ask questions and assume patient care.
[2020-02-11 19:00] VITALS: BP 160/74
[2020-02-11] MEDS: quetiapine 100mg tablet PO SCH (20:09)
[2020-02-12] VITALS: BP 152/69
[2020-02-12] MEDS: HYDROcodone/acetaminophen 10/325mg tab PO PRN ×2 (05:42→19:08)
--- NOTE | 2020-02-12 06:22 | NUR ---
Problems reprioritized. Patient report given, questions answered & plan of care reviewed with IGNACIO Figueroa.
--- NOTE | 2020-02-12 06:53 | NUR ---
Patient in room [facility] 349. I have received report from Juani PIERRE and had the opportunity to ask questions and assume patient care.
[2020-02-12 08:00] VITALS: BP 126/68
[2020-02-12] MEDS: K and/or MAG REPLACEMENT MC SCH ×4 (08:00→18:59)
[2020-02-12] MEDS: donepezil 5mg tablet PO SCH ×2 (08:16→19:40)
[2020-02-12] MEDS: docusate sod 100mg capsule PO SCH ×2 (08:16→20:00)
[2020-02-12] MEDS: oxcarbazepine 150mg tablet PO SCH ×3 (08:17→19:40)
[2020-02-12 11:00] VITALS: BP 113/60
[2020-02-12 15:08] LABS: BASOPHILS # (AUTO) 0.1 X10'3 (0-0.2); BASOPHILS % (AUTO) 1.2 % (0-1); EOSINOPHILS # (AUTO) 0.3 X10'3 (0-0.9); EOSINOPHILS % (AUTO) 2.4 % (0-6); HEMATOCRIT 30.7 % (42.0-52.0); HEMOGLOBIN 10.3 g/dl (14.0-17.9); LYMPHOCYTES # (AUTO) 0.5 X10'3 (1.1-4.8); LYMPHOCYTES % (AUTO) 4.7 % (21-51); MEAN CORPUSCULAR HEMOGLOBIN 30.9 PG (27.0-31.0); MEAN CORPUSCULAR HGB CONC 33.5 g/dL (33.0-36.5); MEAN CORPUSCULAR VOLUME 92.4 FL (78-98); MEAN PLATELET VOLUME 6.8 FL (7.4-10.4); MONOCYTES # (AUTO) 0.6 X10'3 (0-0.9); MONOCYTES % (AUTO) 5.5 % (2-12); NEUTROPHILS # (AUTO) 9.1 X10'3 (1.8-7.7); NEUTROPHILS % (AUTO) 86.2 % (42-75); PLATELET COUNT 554 X10'3 (140-440); RED BLOOD COUNT 3.32 X10'6 (4.70-6.10); RED CELL DISTRIBUTION WIDTH 15.1 % (11.5-14.5); WHITE BLOOD COUNT 10.6 X10'3 (4.5-11.0)
[2020-02-12 15:15] LABS: ALBUMIN 2.8 G/DL (3.4-5.0); ANION GAP 9 (8-16); BLOOD UREA NITROGEN 15 MG/DL (7-18); BUN/CREATININE RATIO 17.6 (5.4-32.0); CALCIUM 8.8 MG/DL (8.5-10.1); CHLORIDE 97 MMOL/L (99-107); CREATININE 0.85 MG/DL (0.60-1.10); GLUCOSE 134 MG/DL (70-104); POTASSIUM 4.3 MMOL/L (3.5-5.1); SODIUM 133 MMOL/L (135-145); TOTAL CARBON DIOXIDE 27.1 MMOL/L (24-32); eGFR 87 ML/MIN
--- NOTE | 2020-02-12 18:50 | NUR ---
Problems reprioritized. Patient report given, questions answered & plan of care reviewed with Radha PIERRE.
[2020-02-12] MEDS: quetiapine 100mg tablet PO SCH (19:40)
[2020-02-12 20:00] VITALS: BP 110/66
[2020-02-13] VITALS: BP 114/71
[2020-02-13] MEDS: HYDROcodone/acetaminophen 10/325mg tab PO PRN ×4 (06:02→23:07)
--- NOTE | 2020-02-13 06:41 | NUR ---
Patient in room [facility] 349. I have received report from Chary PIERRE and had the opportunity to ask questions and assume patient care.
--- NOTE | 2020-02-13 06:43 | NUR ---
Problems reprioritized. Patient report given, questions answered & plan of care reviewed with IGNACIO Faria.
[2020-02-13 07:00] VITALS: BP 114/62
[2020-02-13] MEDS: K and/or MAG REPLACEMENT MC SCH ×4 (08:00→18:29)
[2020-02-13] MEDS: oxcarbazepine 150mg tablet PO SCH ×3 (08:16→19:23)
[2020-02-13] MEDS: donepezil 5mg tablet PO SCH ×2 (08:16→19:23)
[2020-02-13] MEDS: docusate sod 100mg capsule PO SCH ×2 (08:16→19:23)
[2020-02-13 12:00] VITALS: BP 114/62
--- NOTE | 2020-02-13 12:13 | NUR ---
Reassessment: Pt continues with 75-100% PO intake meeting estimated nutrient needs. LBM 02/11 though documented with smears with last large BM being 02/08. Pt receiving routine bowel care with PRN bowel care available last given 02/03. D/w dietary to send prunes and prune juice with next meal to assist with bowel regularity. Will continue to follow and monitor need for further nutrition intervention. Rec: 1. continue heart healthy diet 2. routine bowel care 3. scaled wts per rx Addendum: 02/13/20 at [address] Amended: Links added.
--- NOTE | 2020-02-13 18:15 | NUR ---
Problems reprioritized. Patient report given, questions answered & plan of care reviewed with Chary PIERRE.
--- NOTE | 2020-02-13 18:22 | NUR ---
Patient in room [facility] 349. I have received report from IGNACIO Faria and had the opportunity to ask questions and assume patient care.
[2020-02-13] MEDS: quetiapine 100mg tablet PO SCH (19:22)
[2020-02-13 20:00] VITALS: BP 114/62
[2020-02-14] VITALS: BP 101/60
--- NOTE | 2020-02-14 06:03 | NUR ---
Problems reprioritized. Patient report given, questions answered & plan of care reviewed with IGNACIO Urban.
[2020-02-14 06:30] VITALS: BP 122/69
--- NOTE | 2020-02-14 06:30 | NUR ---
Patient in room [facility] 349. I have received report from IGNACIO Diez and had the opportunity to ask questions and assume patient care.
[2020-02-14] MEDS: K and/or MAG REPLACEMENT MC SCH ×2 (08:00→20:00)
[2020-02-14] MEDS: oxcarbazepine 150mg tablet PO SCH ×3 (09:44→20:25)
[2020-02-14] MEDS: docusate sod 100mg capsule PO SCH ×2 (09:44→20:25)
[2020-02-14] MEDS: donepezil 5mg tablet PO SCH ×2 (09:44→20:25)
[2020-02-14] MEDS: HYDROcodone/acetaminophen 10/325mg tab PO PRN ×3 (09:45→22:33)
[2020-02-14 11:00] VITALS: BP 118/78
[2020-02-14] MEDS ORDERED: diphenhydrAMINE 25mg capsule PO PRN (13:45)
--- NOTE | 2020-02-14 18:45 | NUR ---
Problems reprioritized. Patient report given, questions answered & plan of care reviewed with IGNACIO Wolfe.
--- NOTE | 2020-02-14 18:53 | NUR ---
Patient in room [facility] 349. I have received report from Rajni PIERRE and had the opportunity to ask questions and assume patient care.
[2020-02-14 20:00] VITALS: BP 111/60
[2020-02-14] MEDS: quetiapine 100mg tablet PO SCH (20:25)
[2020-02-15 00:10] VITALS: BP 121/60
[2020-02-15] MEDS: HYDROcodone/acetaminophen 10/325mg tab PO PRN ×2 (04:46→20:20)
--- NOTE | 2020-02-15 06:10 | NUR ---
Patient in room [facility] 349. I have received report from IGNACIO Wolfe and had the opportunity to ask questions and assume patient care.
--- NOTE | 2020-02-15 06:22 | NUR ---
Problems reprioritized. Patient report given, questions answered & plan of care reviewed with Rajni RN.
[2020-02-15 06:30] VITALS: BP 124/66
[2020-02-15] MEDS: docusate sod 100mg capsule PO SCH ×2 (10:01→20:19)
[2020-02-15] MEDS: oxcarbazepine 150mg tablet PO SCH ×3 (10:01→20:20)
[2020-02-15] MEDS: donepezil 5mg tablet PO SCH ×2 (10:03→20:18)
[2020-02-15 11:00] VITALS: BP 144/74
[2020-02-15] MEDS: K and/or MAG REPLACEMENT MC SCH ×2 (11:23→20:00)
--- NOTE | 2020-02-15 18:30 | NUR ---
Problems reprioritized. Patient report given, questions answered & plan of care reviewed with IGNACIO Chen.
--- NOTE | 2020-02-15 18:46 | NUR ---
I have received report from Rajni PIERRE and had the opportunity to ask questions and assume patient care.
[2020-02-15 20:00] VITALS: BP 114/63
[2020-02-15] MEDS: quetiapine 100mg tablet PO SCH (20:19)
[2020-02-16] VITALS: BP 112/62
[2020-02-16] MEDS: HYDROcodone/acetaminophen 10/325mg tab PO PRN (04:28)
--- NOTE | 2020-02-16 06:23 | NUR ---
Problems reprioritized. Patient report given, questions answered & plan of care reviewed with Barbie PIERRE.
[2020-02-16 07:00] VITALS: BP 113/62
[2020-02-16] MEDS: K and/or MAG REPLACEMENT MC SCH (08:00)
[2020-02-16] MEDS: oxcarbazepine 150mg tablet PO SCH ×2 (08:32→12:18)
[2020-02-16] MEDS: donepezil 5mg tablet PO SCH (08:32)
[2020-02-16] MEDS: docusate sod 100mg capsule PO SCH (08:32)
--- NOTE | 2020-02-16 12:01 | NUR ---
67 JOSE FRANCISCO REMOVED. PATIENT TOLERATED WELL. INCISION CDI, WELL APPROXIMATED, NO DRAINAGE.
[2020-02-16 13:15] VITALS: BP 127/63
--- NOTE | 2020-02-16 15:07 | NUR ---
patient stable and appropriate for discharge home. iv removed, all belongings taken from room. no new prescriptions. all discharge education and instructions have been given and reviewed with patient, all questions answered. home health has been arranged for patient.
--- NOTE | 2020-02-18 12:09 | NUR ---
CASE MANAGEMENT DISCHARGE FOLLOW UP: Contacted pt's , Law, upon inquiry, she states that pt is "not doing well," that he is "not minding" and "not following directions." She states that he was up and down without assistance frequently last night and she only got 4 hours of sleep. She expresses concern for his safety. She states that she told previous staff members repeatedly that she cannot care for her and that "they dumped him" on her. She also states that the transport company "wouldn't wheel him into the house, that he had to walk." She also states that the patient's medications weren't right during hospitalization for his "psych issue." She also states that patient has been incontinent of stool. Asked her if she has called pt's PCP and notified him of this change in pt condition, she states that she has not yet. She states that she is worn out and not feeling well, and that she is concerned the patient will hurt himself again. She states that RN and PT from [facility] saw pt at home yesterday and that OT and social work should be here today. Upon inquiry she states that she has not set up appointments with either PCP or Dr. Hale, that she wants to wait until after seen by OT and social work today, denies need for assistance. She states that she told staff that patient needed to go to [facility] and that they could pay, but that the pt was "dumped" on her instead. She expresses frustration regarding situation. Informed her that I would look into pt's chart and follow up with her, she verbalizes understanding. [id number] Attempted to contact Law or pt, no answer, line rang for 1 minute and then asked for access code, unable to leave message. Will make another attempt later. Addendum: 02/18/20 at 1630 by Augusta Hardy RN [id number] Spoke with pt's , Law, again. She states that she OT and SW visited with pt today. OT brought pt a BSC that should help with midnight trips to the . She spoke with social secretary who advised a baby monitor so that she can keep an eye on pt. The social secretary also provided Law with caregiving resources and someone will contact her for additional help. She states that pt's incision looks good and appears to be healing well, but reiterates that she was not happy with discharge planning. States pt came home with nothing but wipes. She states that she will contact Dr Hale's office to set up f/u appt. States no further needs at this time.
== END 2020-02-16 15:06 | disposition home health service (06) | DRG 481 ==
LOC: ER 19:12 → ED HOLD 21:37 → SUR 3N 22:43
PROVIDERS: ADMIT Internal Medicine; ATTEND Family Medicine
PROC: 0QS604Z Reposition Right Upper Femur with Internal Fixation Device, Open Approach (ICD-10-PCS; principal; 2020-01-31 08:01)
PROC: 30233N1 Transfusion of Nonautologous Red Blood Cells into Peripheral Vein, Percutaneous Approach (ICD-10-PCS; 2020-02-01)
DX: M97.01XA Periprosthetic fracture around internal prosthetic right hip joint, initial encounter (principal); S42.341A Displaced spiral fracture of shaft of humerus, right arm, initial encounter for closed fracture; D62 Acute posthemorrhagic anemia; E87.6 Hypokalemia; Z20.822 Contact with and (suspected) exposure to COVID-19; I10 Essential (primary) hypertension; J45.909 Unspecified asthma, uncomplicated; I95.9 Hypotension, unspecified; Z96.652 Presence of left artificial knee joint; Z87.891 Personal history of nicotine dependence; F90.9 Attention-deficit hyperactivity disorder, unspecified type; F03.90 Unspecified dementia, unspecified severity, without behavioral disturbance, psychotic disturbance, mood disturbance, and anxiety; Z82.49 Family history of ischemic heart disease and other diseases of the circulatory system; W18.39XA Other fall on same level, initial encounter; Y93.89 Activity, other specified; Y92.89 Other specified places as the place of occurrence of the external cause; Y99.8 Other external cause status
CPT/HCPCS: 36415; 36430; 71045; 73502; 73552; 73560; 76000; 80048; 80053; 82948; 83735; 84132; 85025; 85027; 85610; 86885; 86900; 86901; 86920; 87081; 87635; 93005; 96374; 97110; 97116; 97162; 97530; 99285; A6222; A6258; A7000; C1713; C1758; C9803; G0378; J0690; J0735; J1100; J2250; J2270; J2405; J2704; J2795; J3010; J7030; J7120; P9016; P9045; Q0163

== ENCOUNTER 2021-01-22 20:03 | Emergency (ER) | payer BC, MEDICARE ==
[~2021-01-22] VITALS: Ht 170.2 cm; Wt 59.1 kg
[~2021-01-22 20:03] MED LIST changes: +ASPI-1264 PO; -LISI-600 PO; +LISI20TA28 PO; -QUET50TA22 PO; +QUET50TA24 PO
[2021-01-22] MEDS ORDERED: TETanus/Pertussis (Acell)/Diphther VAC/PF (Tdap-Adult) 0.5ml syringe IMVAC ONE (21:00)
[2021-01-22 21:05] LABS: BASOPHILS # (AUTO) 0.1 X10'3 (0-0.2); BASOPHILS % (AUTO) 1.4 % (0-1); EOSINOPHILS # (AUTO) 0.2 X10'3 (0-0.9); EOSINOPHILS % (AUTO) 3.1 % (0-6); HEMOGLOBIN 12.3 g/dl (14.0-17.9); LYMPHOCYTES # (AUTO) 1.1 X10'3 (1.1-4.8); LYMPHOCYTES % (AUTO) 13.7 % (21-51); MEAN CORPUSCULAR HEMOGLOBIN 32.1 PG (27.0-31.0); MEAN CORPUSCULAR HGB CONC 34.2 g/dL (33.0-36.5); MEAN CORPUSCULAR VOLUME 93.8 FL (78-98); MONOCYTES # (AUTO) 0.6 X10'3 (0-0.9); MONOCYTES % (AUTO) 7.9 % (2-12); NEUTROPHILS # (AUTO) 5.7 X10'3 (1.8-7.7); NEUTROPHILS % (AUTO) 73.9 % (42-75); PLATELET COUNT 233 X10'3 (140-440); RED BLOOD COUNT 3.84 X10'6 (4.70-6.10); RED CELL DISTRIBUTION WIDTH 12.7 % (11.5-14.5); WHITE BLOOD COUNT 7.8 X10'3 (4.5-11.0)
[2021-01-22 21:19] LABS: ALANINE AMINOTRANSFERASE 25 U/L (12-78); ALBUMIN 3.6 G/DL (3.4-5.0); ALKALINE PHOSPHATASE 91 IU/L (46-116); ANION GAP 9 (8-16); ASPARTATE AMINO TRANSFERASE 22 U/L (10-37); BILIRUBIN,TOTAL 0.2 MG/DL (0.1-1.0); BLOOD UREA NITROGEN 26 MG/DL (7-18); BUN/CREATININE RATIO 28.9 (5.4-32.0); CALCIUM 8.8 MG/DL (8.5-10.1); CHLORIDE 102 MMOL/L (99-107); GLUCOSE 98 MG/DL (70-104); POTASSIUM 4.5 MMOL/L (3.5-5.1); SODIUM 136 MMOL/L (135-145); TOTAL CARBON DIOXIDE 25.3 MMOL/L (24-32); TOTAL PROTEIN 7.2 G/DL (6.4-8.2); eGFR 81 ML/MIN
--- NOTE | 2021-01-22 22:39 | NUR ---
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
[2021-01-23 01:26] LABS: CLARITY,URINE CLEAR (Clear); COLOR,URINE YELLOW (Yellow); GLUCOSE, URINE NEGATIVE (Neg); KETONES,URINE 40 mg/dl (Neg); LEUKOCYTE ESTERASE ,URINE NEGATIVE (Neg); NITRITES, URINE NEGATIVE (Neg); OCCULT BLOOD,URINE TRACE-LYSED (Neg); PROTEIN,URINE NEGATIVE (Neg); UROBILINOGEN,URINE 0.2 E.U/dL (0.2-1.0)
[2021-01-23 01:48] LABS: UA COLLECTION TYPE STRAIGHT CATH
[2021-01-23 01:55] LABS: BACTERIA,URINE NONE SEEN /HPF (Neg); MUCUS STRANDS NONE SEEN /LPF (Neg); RBC,URINE 0-2 /HPF (0-2); SQUAMOUS EPITHELIAL CELL,UR NONE SEEN /LPF (FEW); WBC,URINE NONE SEEN /HPF (0-4)
[2021-01-23 02:30] VITALS: BP 143/67
== END 2021-01-23 03:42 | disposition home or self-care (01) ==
LOC: ER 20:04
DX: S00.81XA Abrasion of other part of head, initial encounter (principal); K21.9 Gastro-esophageal reflux disease without esophagitis; J45.909 Unspecified asthma, uncomplicated; I10 Essential (primary) hypertension; F12.10 Cannabis abuse, uncomplicated; W18.39XA Other fall on same level, initial encounter; Y93.89 Activity, other specified; Y92.89 Other specified places as the place of occurrence of the external cause; Y99.8 Other external cause status
CPT/HCPCS: 36415; 70450; 80053; 81001; 84484; 85025; 90471; 90715; 93005; 99285

== ENCOUNTER 2022-01-05 16:18 | Emergency (ER) | payer BC ==
[~2022-01-05] VITALS: Ht 170.2 cm; Wt 47.0 kg
[2022-01-05] MEDS ORDERED: normal saline 1000ML IV soln IVB ONE ×2 (16:50→18:10)
[2022-01-05 17:23] LABS: ALANINE AMINOTRANSFERASE 31 U/L (12-78); ALBUMIN 3.7 G/DL (3.4-5.0); ALBUMIN/GLOBULIN RATIO 0.9 (1.1-1.5); ALKALINE PHOSPHATASE 139 IU/L (46-116); ANION GAP 12 (8-16); ASPARTATE AMINO TRANSFERASE 32 U/L (10-37); BILIRUBIN,TOTAL 0.4 MG/DL (0.1-1.0); BLOOD UREA NITROGEN 25 MG/DL (7-18); BUN/CREATININE RATIO 21.6 (5.4-32.0); CALCIUM 9.1 MG/DL (8.5-10.1); CHLORIDE 102 MMOL/L (99-107); CREATININE 1.16 MG/DL (0.60-1.10); GLUCOSE 185 MG/DL (70-104); SODIUM 136 MMOL/L (135-145); TOTAL CARBON DIOXIDE 22.5 MMOL/L (24-32); TOTAL PROTEIN 7.6 G/DL (6.4-8.2); eGFR 61 ML/MIN
[2022-01-05 17:29] LABS: BASOPHILS # (AUTO) 0.1 X10'3 (0-0.2); BASOPHILS % (AUTO) 0.5 % (0-1); EOSINOPHILS % (AUTO) 0.3 % (0-6); HEMATOCRIT 34.4 % (42.0-52.0); HEMOGLOBIN 11.5 g/dl (14.0-17.9); LYMPHOCYTES # (AUTO) 1.5 X10'3 (1.1-4.8); LYMPHOCYTES % (AUTO) 11.9 % (21-51); MAGNESIUM 2.3 MG/DL (1.5-2.4); MEAN CORPUSCULAR HEMOGLOBIN 31.9 PG (27.0-31.0); MEAN CORPUSCULAR HGB CONC 33.5 g/dL (33.0-36.5); MEAN CORPUSCULAR VOLUME 95.1 FL (78-98); MEAN PLATELET VOLUME 7.3 FL (7.4-10.4); MONOCYTES # (AUTO) 0.5 X10'3 (0-0.9); MONOCYTES % (AUTO) 4.3 % (2-12); NEUTROPHILS # (AUTO) 10.5 X10'3 (1.8-7.7); PLATELET COUNT 276 X10'3 (140-440); RED BLOOD COUNT 3.62 X10'6 (4.70-6.10); WHITE BLOOD COUNT 12.6 X10'3 (4.5-11.0)
--- NOTE | 2022-01-05 21:11 | NUR ---
REVIEWED GENERAL ASSESSMENT. PT [id number], NO C/O N/V ABDOMINAL PAIN AT THIS TIME.
[2022-01-05 21:31] LABS: CLARITY,URINE SLIGHTLY CLOUDY (Clear); COLOR,URINE YELLOW (Yellow); GLUCOSE, URINE NEGATIVE (Neg); KETONES,URINE NEGATIVE (Neg); LEUKOCYTE ESTERASE ,URINE SMALL (Neg); NITRITES, URINE NEGATIVE (Neg); OCCULT BLOOD,URINE TRACE-INTACT (Neg); PH,URINE 5.5 (4.8-8.0); PROTEIN,URINE NEGATIVE (Neg); UROBILINOGEN,URINE 0.2 E.U/dL (0.2-1.0)
[2022-01-05 21:33] LABS: UA COLLECTION TYPE URINAL
[2022-01-05 21:44] LABS: WBC,URINE 50-100 /HPF (0-4)
[2022-01-05 21:45] LABS: BACTERIA,URINE 1+ /HPF (Neg); SQUAMOUS EPITHELIAL CELL,UR FEW /LPF (FEW); WBC CLUMPS,URINE FEW /HPF (NEGATIVE)
[2022-01-05] MEDS ORDERED: cephalexin 500mg capsule PO ONE (21:55)
[2022-01-05] MEDS ORDERED: CEPH500C2 PO (21:59)
[2022-01-05 22:28] VITALS: BP 109/57
== END 2022-01-05 22:30 | disposition home or self-care (01) ==
LOC: ER 16:19
DX: A09 Infectious gastroenteritis and colitis, unspecified (principal); Z20.822 Contact with and (suspected) exposure to COVID-19; N30.00 Acute cystitis without hematuria; K21.9 Gastro-esophageal reflux disease without esophagitis; R10.33 Periumbilical pain; Z79.1 Long term (current) use of non-steroidal anti-inflammatories (NSAID); Z79.82 Long term (current) use of aspirin; J45.909 Unspecified asthma, uncomplicated; I10 Essential (primary) hypertension; F12.10 Cannabis abuse, uncomplicated; Z87.81 Personal history of (healed) traumatic fracture; Z79.899 Other long term (current) drug therapy
CPT/HCPCS: 36415; 71045; 80053; 81001; 83735; 83880; 84484; 85025; 87088; 87635; 93005; 96360; 96361; 99285; C9803; J7030